=== PATIENT | female | born 1950 | race Caucasian/White ===

== ENCOUNTER 2017-07-08 15:22 | Emergency (ER) | END 2017-07-09 02:09 | disposition home or self-care (01) ==

== ENCOUNTER 2018-08-19 06:43 | Observation (INO) | payer MEDICAID ==
[~2018-08-19] VITALS: Ht 157.5 cm; Wt 80.2 kg
[~2018-08-19 06:43] MED LIST: ASPI-903 PO; DICY10CA40 PO; HYDR25TA6 PO; LEVO25TA6 PO; LISI40TA3 PO; MULTI PO; ONDA4TAB14 PO
[2018-08-19 06:45] VITALS: Ht 157.5 cm; Wt 80.2 kg
[2018-08-19] MEDS ORDERED: SOD CHLORIDE 0.9% 500 ML IV STA (06:51)
--- NOTE | 2018-08-19 07:45 | ERD ---
ER Documentation Chief Complaint Chief Complaint palpitations;left facial, arm numbness tingling sensation; dizziness; sob HPI This is a very pleasant 68-year-old female with a past medical history of hypertension and hypothyroidism. The patient presents to the emergency department stating that when she woke this morning after taking a shower she felt a sudden onset of palpitations. She felt lightheaded and dizzy and felt as though she was going to pass out. She did not have a complete transient loss of consciousness. She did states she noticed pain in her left arm but denied any chest pressure. She stated she also felt some numbness and tingling of her left arm and face that lasted for roughly 6 seconds and then spontaneously resolved. She denied any weakness of her upper or lower extremities. She was seen yesterd ay at [facility] by her primary care physician who performed an EKG. He stated he noticed some abnormalities and that if she were to feel any symptoms of chest pain or pressure that she was immediately to go to the emergency department to be further evaluated. Again the patient states she did not experience any chest pressure but only palpitations. She has no recent travel or prolonged immobilization. She denies a headache. She has no shortness of breath at rest or exertion denies any recent travel or prolonged immobilization. She is a family history of coronary artery disease but denies tobacco use. ROS All systems reviewed and are negative except as per history of present illness. Medications Home Meds Active Scripts Ondansetron (Ondansetron Odt) 4 Mg Tab.rapdis, 4 MG PO Q6H PRN for NAUSEA AND/OR VOMITING, #10 TAB Prov:CATHY ZAMBRANO 07/09/17 Dicyclomine HCl (Dicyclomine HCl) 10 Mg Capsule, 10 MG PO QID, #20 CAP Prov:CATHY ZAMBRANO 07/09/17 Reported Medications Multivitamins* (Theragran*) 1 Tab Tab, 1 TAB PO DAILY, TAB 07/08/17 Aspirin* (Aspirin* Chew) 81 Mg Tab.chew, 81 MG PO DAILY, TAB.CHEW 01/30/16 Lisinopril* (Lisinopril*) 40 Mg Tablet, 40 MG PO DAILY, #30 TAB 01/30/16 Levothyroxine Sodium* (Levothyroxine Sodium*) 25 Mcg Tablet, 25 MCG PO BEFORE BREAKFAST, #30 TAB 01/30/16 Hydrochlorothiazide* (Hydrochlorothiazide*) 25 Mg Tab, 25 MG PO DAILY, #30 TAB 01/30/16 Allergies Allergies: Coded Allergies: No Known Allergy (Unverified , 01/30/16) PMhx/Soc History of Surgery: Yes (cholecystectomy 1 yr ago) Anesthesia Reaction: No Hx Neurological Disorder: No Hx Respiratory Disorders: No Hx Cardiac Disorders: Yes (htn) Hx Psychiatric Problems: No Hx Miscellaneous Medical Probl: Yes (hypothyroidism) Hx Alcohol Use: No Hx Substance Use: No Hx Tobacco Use: No Smoking Status: Never smoker Physical Exam Vitals Vital Signs Date Temp Pulse Resp B/P (MAP) Pulse Ox O2 O2 Flow FiO2 Time Delivery Rate 08/19/18 Nasal 2 07:10 Cannula 08/19/18 97.9 87 21 179/95 96 06:45 (123) Physical Exam Constitutional:Well-developed. Well-nourished. HEENT:Normocephalic. Atraumatic.Pupils were equal round reactive to light. Moist mucous membranes.No tonsillar exudates. Neck: No nuchal rigidity. No lymphadenopathy. No posterior cervical spine tenderness or step-offs. Respiratory: Not using accessory muscles of respiration.Lungs were clear to auscultation bilaterally. No rhonchi. No rales. No wheezing. Cardiovascular: Regular rate regular rhythm.No murmurs. No rubs were appreciated.S1, S2 normal. Distal pulses are palpable 2+ bilaterally. GI: Abdomen was soft. Nontender. Non Distended. No pulsatile abdominal masses or bruits. No rebound. No guarding. Bowel sounds were present and normal. Muscle skeletal: Full range of motion of both the upper and lower extremities bilaterally.Normal muscle tone.No assymetrical calf tenderness or swelling. Skin: No petechia, no purpura. No lesions on the palms or the soles of the feet. No maculopapular rash. NEURO: Patient was alert, awake, orientated x3.No facial droop. Gait observed and normal with no ataxia.Speech had regular rate and rhythm. No focal neurological deficits. Result Diagram: 08/19/18 0720 Results 24 hrs Laboratory Tests Test 08/19/18 07:20 White Blood Count 5.8 10^3/ul Red Blood Count 5.03 10^6/ul Hemoglobin 14.5 g/dl Hematocrit 45.2 % Mean Corpuscular Volume 89.9 fl Mean Corpuscular Hemoglobin 28.8 pg Mean Corpuscular Hemoglobin Concent 32.1 g/dl Red Cell Distribution Width 13.2 % Platelet Count 207 10^3/UL Mean Platelet Volume 10.0 fl Immature Granulocytes % 0.000 % Neutrophils % 58.5 % Lymphocytes % 29.0 % Monocytes % 8.6 % Eosinophils % 2.7 % Basophils % 1.2 % Nucleated Red Blood Cells % 0.0 /100WBC Immature Granulocytes # 0.000 10^3/ul Neutrophils # 3.4 10^3/ul Lymphocytes # 1.7 10^3/ul Monocytes # 0.5 10^3/ul Eosinophils # 0.2 10^3/ul Basophils # 0.1 10^3/ul Nucleated Red Blood Cells # 0.0 10^3/ul Current Medications Medications Dose Sig/Mary Start Time Status Last (Trade) Ordered Route PRN Stop Time Admin Dose Reason Admin Sodium 500 ml @ Q1H STAT 08/19/18 08/19/18 Chloride 500 mls/hr IV 06:51 07:33 08/19/18 07:50 Procedures/MDM The patient presented to the emergency department with a near syncope episode and palpitations. The differential diagnosis of syncope is vast but my workup considered common benign disorders to life-threatening processes. Therefore my differential diagnosis included but was not limited to reflex-mediated syncope such as vasovagal or carotid sinus syncope from coughing, sneezing, micturition, or GI stimulation (eg, defecation). Other etiologies in my workup included orthostatic hypotension which could cause syncope from an abrupt drop in venous return to heart from volume depletion. An EKG and cardiac enzymes were obtained to rule out cardiac arrhythmias or ischemia. Cardiopulmonary disease such as valvular disease, hypertrophic cardiomyopathy, pericardial tamponade, or pulmonary embolism were considered as a factor causing the patients syncope episode. The patient had no difference in blood pressure in both arms that could suggest aortic dissection or subclavian steal syndrome. Rectal exam was negative for fecal occult blood that could suggest GI bleeding. Ancillary la boratory work was obtained to evaluate for metabolic or electrolyte abnormalities. The patient had no witnessed brief tonic movements that could suggest postictal confusion. The patient was placed on a nurse chemical dependency, continuous pulse oximetry and IV access established by nursing staff. The patient is taking 81 mg of aspirin prior to arrival which she takes on a daily basis. A 1 view chest radiograph on reviewed by myself showed no cardiomegaly no states no pneumothorax. I obtained a 12-lead EKG tracing to rule out for atypical myocardial ischemic event the patient was also expressing palpitations. 12 Lead EKG tracing ordered and reviewed by myself showed: Normal sinus rhythm of 76 bpm and no arrhythmia. WI interval normal. QRS duration normal. No ST segment elevation No ST segment depression. No changes consistent with acute ischemia. I did feel the patient required admission for serial twelve-lead EKG tracings and cardiac set of enzymes. She will be admitted to the panel physician. Departure Diagnosis: Primary Impression: Near syncope Additional Impression: Palpitations Condition: Serious EHSAN HURD MD Aug 19, 2018 07:45
[2018-08-19] MEDS ORDERED: ONDANSETRON 4 MG INJ IV PRN ×2 (08:30→11:00)
[2018-08-19] MEDS ORDERED: ACETAMINOPHEN 325 MG TAB PO PRN ×2 (08:30→11:00)
[2018-08-19 10:45] VITALS: BP 130/73; PULSE 76; RESP 18
--- NOTE | 2018-08-19 10:48 | HP ---
Date/Time of Note Date/Time of Note DATE: 08/19/18 TIME: 10:48 Assessment/Plan VTE Prophylaxis SCD applied (from Nsg): Yes Pharmacological prophylaxis: LMWH Lines/Catheters IV Catheter Type (from Nrsg): Saline Lock Assessment/Plan Hospital Course SUBJECTIVE: Lying in bed comfortably. Having no discomfort, however admitted chest pain when touching the area. OBJECTIVE: Vital signs-see below PHYSICAL EXAM: Constitutional: Well-developed, adequately built, lying in bed comfortably. Psych: nl mood/affect, no complaints Head: atraumatic, normocephalic Eyes: nl conjunctiva, nl sclera ENMT: mucosa pink and moist, nl external ears & nose Neck: non-tender, supple Respiratory: clear to auscultation, normal air movement Cardiovascular: nl pulses, regular rate and rhythm Gastrointestinal: non-tender, soft, bowel sounds active in all 4 quadrants. Musculoskeletal/extremities: nl extremities to inspection, motor strength equal bilaterally, no focal deficit. Normal pulses,no cyanosis, no edema. Neurological: Alert oriented 3,nl speech, nl strength Skin: nl turgor ASSESSMENT/PLAN: 68-year-old Uzbek-speaking female with a history of hypertension, dyslipidemia, here with chest pain, palpitation, left facial numb ness. 1. Chest pain, rule out acute coronary syndrome -On exam, patient has quite localized and reproducible pain with palpation of chest wall, so most likely this is a musculoskeletal pain in origin, Troponins and EKG are negative for acute WI -However we will admit patient to telemetry for observation for a complete ACS workup with 3 sets of troponin, serial EKG. -Aspirin prophylaxis, PRN nitroglycerin -Obtain TSH, A1c, vitamin D, B12 level to rule out other neuro-endocrinopathy etiology. -2D echocardiogram 2. Left facial numbness -CT negative for acute stroke. Proceed with MRI brain and carotid ultrasound evaluation in light of patient presented with hypertension. -Again, we will obtain thyroid function. 3. Hypothyroidism -Resume Synthroid 4. Hypertension -Now stable. Continue home medications 5. Obesity with BMI 32.3 -Weight reduction advised. Obtain lipid panel and A1c in AM. DVT prophylaxis: Lovenox PUD prophylaxis: Pepcid CODE STATUS: Full code Diet: Low-cholesterol/low-fat diet. Rest of the management depend on hospital course. Approximately 60 m spent on this history and physical. Next Patient was seen in collaboration with Result Diagram: 08/19/18 0720 08/19/18 0720 Results 24hrs Laboratory Tests Test 08/19/18 07:20 White Blood Count 5.8 # Red Blood Count 5.03 Hemoglobin 14.5 Hematocrit 45.2 Mean Corpuscular Volume 89.9 Mean Corpuscular Hemoglobin 28.8 L Mean Corpuscular Hemoglobin Concent 32.1 Red Cell Distribution Width 13.2 Platelet Count 207 Mean Platelet Volume 10.0 Immature Granulocytes % 0.000 L Neutrophils % 58.5 Lymphocytes % 29.0 Monocytes % 8.6 Eosinophils % 2.7 Basophils % 1.2 Nucleated Red Blood Cells % 0.0 Immature Granulocytes # 0.000 Neutrophils # 3.4 Lymphocytes # 1.7 Monocytes # 0.5 Eosinophils # 0.2 Basophils # 0.1 Nucleated Red Blood Cells # 0.0 Prothrombin Time 11.5 L Prothrombin Time Ratio 0.9 INR International Normalized Ratio 0.83 Activated Partial Thromboplast Time 29.4 Sodium Level 141 Potassium Level 3.8 Chloride Level 104 Carbon Dioxide Level 27 Anion Gap 10 Blood Urea Nitrogen 13 Creatinine 0.70 Est Glomerular Filtrat Rate mL/min > 60 Glucose Level 106 Calcium Level 9.5 Total Bilirubin 0.3 Direct Bilirubin 0.00 Indirect Bilirubin 0.3 Aspartate Amino Transf (AST/SGOT) 29 Alanine Aminotransferase (ALT/SGPT) 20 Alkaline Phosphatase 89 Creatine Kinase 81 Creatine Kinase Index 1.1 Creatinine Kinase MB (Mass) 0.88 Troponin I < 0.012 B-Type Natriuretic Peptide 191 H Total Protein 7.2 Albumin 4.0 Globulin 3.20 Albumin/Globulin Ratio 1.25 HPI/ROS Admit Date/Time Admit Date/Time Aug 19, 2018 at 08:16 Hx of Present Illness This is a 68-year-old Uzbek-speaking pleasant female with a past medical history of hypothyroidism, hypertension, gallbladder surgery, was brought in for sudden onset of left-sided chest pain with palpitation started this morning. Patient also felt dizzy when this occurred. There was no loss of consciousness, diaphoresis, nausea, vomiting, abdominal pain, diarrhea, fever, chills, speech difficulties, vision changes, motor weakness, unsteady gait or other constitutional symptoms. Apparently, patient was overall not feeling well for the past 2 days with some numbness on her left face as well. In the emergency room, initial CBC and BMP unremarkable. BNP mildly elevated 191. Chest x-ray with no evidence of fluid overload or pulmonary vascular congestion. EKG with no acute ST or T wave changes. Troponin negative. Upon presentation, patient had a blood pressure 179/95. A brain CT did not reveal any acute intracranial pathology. Patient was given IV fluids in the emergency room and was admitted for ACS workup. ROS A 12 point review of system was assessed and is negative other than what is mentioned in HPI. PMH/Family/Social Past Medical History See HPI Medications Current Medications Ondansetron HCl (Zofran Inj) 4 mg ER BRIDGE PRN IV NAUSEA/VOMITING; Start 08/19/18 at 08:30; Stop 08/20/18 at 08:29 Acetaminophen (Tylenol Tab) 650 mg ER BRIDGE PRN PO .MILD PAIN 1-3 OR TEMP; Start 08/19/18 at 08:30; Stop 08/20/18 at 08:29 Aspirin (Aspirin) 81 mg DAILY PO ; Start 08/20/18 at 09:00; Status UNV Hydrochlorothiazide (Hydrochlorothiazide) 25 mg DAILY PO ; Start 08/19/18 at 11:00; Status UNV Levothyroxine Sodium (Synthroid) 25 mcg BEFORE BREAKFAST PO ; Start 08/20/18 at 07:00; Status UNV Lisinopril (Zestril) 40 mg DAILY PO ; Start 08/19/18 at 11:00; Status UNV Multivitamins Therapeutic (Theragran) 1 tab DAILY PO ; Start 08/19/18 at 11:00; Status UNV Coded Allergies: No Known Allergy (Unverified , 08/19/18) Past Surgical History See HPI Past Surgical Hx: no surgical history Family History Significant Family History: no pertinent family hx Social History Denied history of alcohol, smoking or illicit drug use. Smoking Status: Never smoker Exam/Review of Systems Vital Signs Vitals Vital Signs Date Temp Pulse Resp B/P (MAP) Pulse Ox O2 O2 Flow FiO2 Time Delivery Rate 08/19/18 98.0 63 17 123/69 99 Room Air 10:06 (87) 08/19/18 2 07:10 EZRA LOZADA NP Aug 19, 2018 10:48
[2018-08-19] MEDS ORDERED: morphine 2 MG INJ IV PRN (11:00)
[2018-08-19] MEDS ORDERED: NITROGLYCERIN (SL) 0.4 MG TAB SL PRN (11:00)
[2018-08-19] MEDS ORDERED: DOCUSATE SODIUM 100 MG CAP PO PRN (11:00)
[2018-08-19] MEDS ORDERED: NACL 0.9% 3 ML SYG IV SCH (11:00)
[2018-08-19 12:24] VITALS: PULSE 61
[2018-08-19] MEDS: LISINOPRIL 20 MG TAB PO SCH (12:34)
[2018-08-19] MEDS: MULTIVITAMINS THERAPEUTIC TAB PO SCH (12:34)
[2018-08-19] MEDS: HYDROCHLOROTHIAZIDE 25 MG TAB PO SCH (12:35)
[2018-08-19 14:51] VITALS: BP 132/72; PULSE 74; RESP 20
--- NOTE | 2018-08-19 15:18 | RADRPT ---
Echocardiogram Report Patient Name: KIRTI DANGELOPatient ID: [id number] : 1950 (68y 2m)Study Date: 08/19/2018 11:25:14 AM Gender: FAccession #: [id number] Tech: MI Location: Ref.Physician: EZRA LOZADA Height(Cm): BSA: Weight(Kg): Quality: AdequateAccount #: Procedures: Echocardiographic Report: Transthoracic echocardiogram with complete 2D, M-Mode, and doppler examination. Indications: Chest Pain. Measurements: 2D/M Mode Doppler Measurement Value Normal Range Measurement Value Normal Range LVIDd 2D 3.9 [ 3.8 - 5.2 ] cm AV Peak Julio César 1.2 [ 100.0 - 170.0 ] cm/sec LVIDs 2D 2.1 [ 2.2 - 3.5 ] cm AV Peak PG 6.0 [ 2.0 - 9.0 ] mmHg LVPWd 2D 1.0 [ 0.6 - 0.9 ] cm LVOT Peak Julio César 1.0 [ 70.0 - 110.0 ] cm/sec IVSd 2D 1.1 [ 0.6 - 0.9 ] cm LVOT Peak PG 4.0 [ 2.0 - 6.0 ] mmHg AoR Diam 2D 2.3 [ 2.3 - 3.1 ] cm MV E Peak Julio César 0.8 [ 60.0 - 130.0 ] cm/sec EDV 2D 66.7 [ 46.0 - 106.0 ] ml MV A Peak Julio César 0.7 [ 100.0 - 120.0 ] cm/sec ESV 2D 14.8 [ 14.0 - 42.0 ] ml MV E/A 1.1 [ 0.8 - 1.5 ] ratio EF 2D 77.8 [ 54.0 - 74.0 ] percent MV Decel Time 183 [ 104 - 258 ] msec LA Dimen 2D 2.9 [ 2.7 - 3.8 ] cm Lat E` Julio César 0.1 [ 10.0 - 15.0 ] cm/sec Lateral E/E` 6.6 [ 1.0 - 2.0 ] ratio MV E/A 1.1 [ 0.8 - 1.5 ] ratio TR Peak Julio César 2.6 [ 100.0 - 280.0 ] cm/sec TR Peak PG 26.0 mmHg RVSP 29.0 [ 10.0 - 36.0 ] mmHg RA Pressure 3.0 mmHg Findings: Left Ventricle: Normal left ventricular systolic function. Normal left ventricular cavity size. Mild concentric left ventricular hypertrophy. Ejection fraction is visually estimated at 65 %. Right Ventricle: Normal right ventricular size. Normal right ventricular systolic function. Left Atrium: The left atrium is normal in size. Right Atrium: The right atrium is normal in size. Mitral Valve: Normal appearance and function of the mitral valve with trace physiologic regurgitation. Aortic Valve: Normal appearance of the aortic valve. No significant aortic stenosis or insufficiency. Tricuspid Valve: Normal appearance of the tricuspid valve. Estimated peak PA systolic pressure 29 mmHg. There is trace tricuspid regurgitation. Pulmonic Valve: Normal pulmonic valve appearance. Pericardium: Normal pericardium with no significant pericardial effusion. Aorta: Normal aortic root. IVC: Normal size and normal respiratory collapse consistent with normal right atrial pressure. Conclusions: Normal left ventricular systolic function. Normal left ventricular cavity size. Mild concentric left ventricular hypertrophy. Ejection fraction is visually estimated at 65 %. Normal right ventricular size. Normal right ventricular systolic function. The left atrium is normal in size. The right atrium is normal in size. No significant valvular stenosis or regurgitation seen. Normal pericardium with no significant pericardial effusion. Electronically Signed By: Chance Lyn 2018-08-19 15:17:16 PST
[2018-08-19 16:09] VITALS: PULSE 64
[2018-08-19 19:52] VITALS: BP 127/73; PULSE 74; RESP 18
[2018-08-19 20:00] VITALS: PULSE 73
[2018-08-19] MEDS: FAMOTIDINE 20 MG TAB PO SCH (21:31)
[2018-08-20] VITALS: BP 121/62; PULSE 61; PULSE 75; RESP 20
[2018-08-20 04:00] VITALS: BP 115/58; PULSE 60; PULSE 61; RESP 18
[2018-08-20] MEDS ORDERED: LEVOTHYROXINE 25 MCG TAB PO SCH (07:00)
[2018-08-20 07:20] VITALS: BP 118/67; PULSE 60; RESP 18
[2018-08-20] MEDS: FAMOTIDINE 20 MG TAB PO SCH (08:18)
[2018-08-20] MEDS: MULTIVITAMINS THERAPEUTIC TAB PO SCH (08:18)
[2018-08-20] MEDS: LISINOPRIL 20 MG TAB PO SCH (08:20)
[2018-08-20] MEDS: HYDROCHLOROTHIAZIDE 25 MG TAB PO SCH (08:20)
[2018-08-20 08:30] VITALS: PULSE 79
[2018-08-20] MEDS ORDERED: ASPIRIN 81 MG TAB PO SCH (09:00)
[2018-08-20] MEDS ORDERED: ENOXAPARIN 40 MG/0.4 ML SYG SC SCH (09:00)
--- NOTE | 2018-08-20 09:54 | PDOCDIS ---
Discharge Instructions CONDITION [id number] Patient Condition: [id number] Stable HOME CARE INSTRUCTIONS: [id number] Diet Instructions: [id number] Reduced Calorie FOLLOW UP/APPOINTMENTS Follow-up Plan Follow-up with primary care physician in 1 week-you need to repeat your vitamin D level in 3 months after medication course is completed for dose titration. EZRA LOZADA NP Aug 20, 2018 09:54
[2018-08-20 11:10] VITALS: BP 108/65; PULSE 61; RESP 18
[2018-08-20] MEDS ORDERED: ERGOCALCIFEROL 50,000 UNIT CAP PO SCH (12:00)
[2018-08-20 12:09] VITALS: PULSE 63
[2018-08-20] MEDS ORDERED: ERGO500013 PO (14:33)
--- NOTE | 2018-08-20 14:38 | DS ---
Date/Time of Note Date/Time of Note DATE: 08/20/18 TIME: 14:35 Discharge Summary Admission/Discharge Info Admit Date/Time Aug 19, 2018 at 08:16 Discharge Date/Time Discharge Diagnosis 1. Chest pain,Left facial numbness. Likely costochondritis/vitamin D defic iency. ACS ruled out 2. Hypothyroidism 3. Hypertension 4. Obesity with BMI 32.3 Patient Condition: Stable Procedures 08/19/2018. 2D echocardiogram. Conclusions: Normal left ventricular systolic function. Normal left ventricular cavity size. Mild concentric left ventricular hypertrophy. Ejection fraction is visually estimated at 65 %. Normal right ventricular size. Normal right ventricular systolic function. The left atrium is normal in size. The right atrium is normal in size. No significant valvular stenosis or regurgitation seen. 08/19/2018. Carotid duplex. IMPRESSION: No evidence for hemodynamically significant stenosis in the bilateral internal carotid arteries - validated velocity measurements with angiographic measurements, velocity criteria are extrapolated from diameter data as defined by the Society of Radiologists in Ultrasound Consensus Conference Radiology 2003; 229;340-346. This study does indirectly reference the measurement of the distal ICA diameter as the denominator for stenosis measurement. 08/19/2018. Brain CT. IMPRESSION: 1. No acute intracranial pathology. 2. Mild generalized parenchymal volume loss. 3. Mild chronic microvascular white matter ischemic disease. 4. Atherosclerosis. 08/19/2018. MRI. Report pending in [place], however written report in the chart, negative for stroke. Normal pericardium with no significant pericardial effusion. Electronically Signed By: Chance Lyn 2018-08-19 15:17:16 PST Dictated By: CHANCE LYN DO Signed By: CHANCE LYN DO Hx of Present Illness This is a 68-year-old Kazakh-speaking pleasant female with a past medical history of hypothyroidism, hypertension, gallbladder surgery, was brought in for sudden onset of left-sided chest pain with palpitation started this morning. Patient also felt dizzy when this occurred. There was no loss of consciousness, diaphoresis, nausea, vomiting, abdominal pain, diarrhea, fever, chills, speech difficulties, vision changes, motor weakness, unsteady gait or other constitutional symptoms. Apparently, patient was overall not feeling well for the past 2 days with some numbness on her left face as well. In the emergency room, initial CBC and BMP unremarkable. BNP mildly elevated 191. Chest x-ray with no evidence of fluid overload or pulmonary vascular congestion. EKG with no acute ST or T wave changes. Troponin negative. Upon presentation, patient had a blood pressure 179/95. A brain CT did not reveal any acute intracranial pathology. Patient was given IV fluids in the emergency room and was admitted for ACS workup. Hospital Course 68-year-old Kazakh-speaking female with a history of hypertension, dyslipidemia, here with chest pain, palpitation, left facial numbness. She was ruled out for acute coronary syndrome and stroke. Her symptoms completely resolved. Patient was noted with vitamin D deficiency for which supplementation was started. Most likely symptoms are secondary to endocrinopathy with vitamin D deficiency and existing hypothyroidism. Patient's TSH and T4 level within acceptable range on Synthroid therapy. At this time, patient is feeling back to baseline. 2D echocardiogram normal. Patient is medically stable for discharge with outpatient follow-up. Approximately 60 m spent on coordinating the discharge on this patient. Next Patient was seen in collaboration with Dr. Kearney. Home Meds Active Scripts Ergocalciferol (Vitamin D2) (VITAMIN D2) 50,000 Unit Capsule, 07653 UNIT PO Q7D, #12 CAP EVERY THURSDAY Prov:EZRA LOZADA V. RENAL MEDICINE PHYSICIAN 08/20/18 Reported Medications Multivitamins* (Theragran*) 1 Tab Tab, 1 TAB PO DAILY, TAB 07/08/17 Aspirin* (Aspirin* Chew) 81 Mg Tab.chew, 81 MG PO DAILY, TAB.CHEW 01/30/16 Lisinopril* (Lisinopril*) 40 Mg Tablet, 40 MG PO DAILY, #30 TAB 01/30/16 Levothyroxine Sodium* (Levothyroxine Sodium*) 25 Mcg Tablet, 25 MCG PO BEFORE BREAKFAST, #30 TAB 01/30/16 Hydrochlorothiazide* (Hydrochlorothiazide*) 25 Mg Tab, 25 MG PO DAILY, #30 TAB 01/30/16 Discontinued Scripts Ondansetron (Ondansetron Odt) 4 Mg Tab.rapdis, 4 MG PO Q6H PRN for NAUSEA AND/OR VOMITING, #10 TAB Prov:CATHY ZAMBRANO Seferino 07/09/17 Dicyclomine HCl (Dicyclomine HCl) 10 Mg Capsule, 10 MG PO QID, #20 CAP Prov:CATHY ZAMBRANO. 07/09/17 Follow-up Plan Follow-up with primary care physician in 1 week-needs to repeat vitamin D level in 3 months after treatment to de-escalate treatment. Primary Care Provider Not On Staff Doctor Pending Labs Laboratory Tests Test 08/19/18 16:13 08/20/18 05:17 08/20/18 05:19 Creatine Kinase 75 IU/L (23-200) Creatine Kinase 0.7 Index Creatinine Kinase 0.52 MB (Mass) ng/ml (0.0-2.4) Troponin I < 0.012 ng/ml (0.000-0.120) Vitamin D 15.9 1,25-Dihydroxy ng/ml (30-100) Free Thyroxine 0.85 ng/dl (0.78-2.44) White Blood Count 6.7 10^3/ul (4.8-10.8) Red Blood Count 4.91 10^6/ul (4.20-5.40 ) Hemoglobin 14.2 g/dl (12.0-16.0) Hematocrit 44.5 % (37.0-47.0) Mean Corpuscular 90.6 Volume fl (82.0-101.0) Mean Corpuscular 28.9 Hemoglobin pg (29.0-33.0) Mean Corpuscular 31.9 Hemoglobin Concent g/dl (32.0-37.0) Red Cell 13.0 % (11.5-14.5) Distribution Width Platelet Count 220 10^3/UL (140-415) Mean Platelet 10.4 fl (7.4-10.4) Volume Immature 0.400 Granulocytes % % (0.001-0.429) Neutrophils % 59.5 % (39.0-77.0) Lymphocytes % 28.9 % (15.0-51.0) Monocytes % 8.2 % (0.0-11.0) Eosinophils % 2.1 % (0.0-7.0) Basophils % 0.9 % (0.0-2.0) Nucleated Red Blood 0.0 Cells % /100WBC (0.0-0.0) Immature 0.030 Granulocytes # 10^3/ul (0.0-0.031 ) Neutrophils # 4.0 10^3/ul (1.6-7.5) Lymphocytes # 1.9 10^3/ul (0.8-2.9) Monocytes # 0.6 10^3/ul (0.3-0.9) Eosinophils # 0.1 10^3/ul (0.0-0.5) Basophils # 0.1 10^3/ul (0.0-0.1) Nucleated Red Blood 0.0 Cells # 10^3/ul (0.0-0.0) Sodium Level 139 mmol/L (135-144) Potassium Level 3.5 mmol/L (3.5-5.1) Chloride Level 102 mmol/L (97-110) Carbon Dioxide 28 mmol/L (21-31) Level Anion Gap 9 (5-13) Blood Urea 12 mg/dl (7-20) Nitrogen Creatinine 0.62 mg/dl (0.44-1.00) Est Glomerular > 60 mL/min (>60) Filtrat Rate mL/min Glucose Level 112 mg/dl (70-220) Hemoglobin A1c 5.7 % (0-5.9) Calcium Level 9.3 mg/dl (8.4-10.2) Phosphorus Level 4.4 mg/dl (2.5-4.9) Magnesium Level 2.1 mg/dl (1.7-2.5) Total Bilirubin 0.3 mg/dl (0.2-1.3) Direct Bilirubin 0.00 mg/dl (0.00-0.20) Indirect Bilirubin 0.3 mg/dl (0-1.1) Aspartate Amino 26 IU/L (15-46) Transf (AST/SGOT) Alanine 19 IU/L (13-69) Aminotransferase (A LT/SGPT) Alkaline 73 IU/L (42-121) Phosphatase Total Protein 7.3 g/dl (6.1-8.1) Albumin 3.9 g/dl (3.3-4.9) Globulin 3.40 g/dl (1.3-3.2) Albumin/Globulin 1.14 Ratio Triglycerides 92 mg/dl (0-149) Level Cholesterol Level 132 mg/dl (100-200) LDL Cholesterol, 69 mg/dl Calculated HDL Cholesterol 45 mg/dl (35-98) Cholesterol/HDL 2.9 RATIO Ratio Thyroid Stimulating 4.870 Hormone (TSH) MIU/L (0.465-4.680 ) EZRA LOZADA NP Aug 20, 2018 14:38
== END 2018-08-20 15:36 | disposition home or self-care (01) ==
LOC: E/R 06:43 → 6WM 08:16
PROVIDERS: ADMIT Internal Medicine; ATTEND Internal Medicine
DX: R07.9 Chest pain, unspecified (principal); R20.0 Anesthesia of skin; E03.9 Hypothyroidism, unspecified; I10 Essential (primary) hypertension; E66.9 Obesity, unspecified; Z68.32 Body mass index [BMI] 32.0-32.9, adult
CPT/HCPCS: 70450; 70551; 71045; 80053; 80061; 82306; 82550; 82553; 82607; 82652; 83036; 83735; 83880; 84100; 84439; 84443; 84484; 85025; 85610; 85730; 93005; 93306; 93880; J1650; J7040; Z7500; Z7502; Z7610; G0378